=== PATIENT | male | born 1950 | race African-American/Black ===

== ENCOUNTER 2020-09-06 18:55 | Emergency (ER) | payer MEDICARE, MEDICAID ==
[~2020-09-06] VITALS: Ht 157.5 cm; Wt 63.5 kg
[2020-09-06 19:05] VITALS: BP 153/101
--- NOTE | 2020-09-06 19:17 | Emergency Room Report ---
History of Present Illness General Chief Complaint: Dizziness Source: Patient, Medical Record Present Illness HPI Patient is a 70-year-old male brought in by EMS after recurrent falls at facility. Patient had prior history of reported polio. States he had previously been unable to move his left lower extremity. Reports having increased neck pain after falling and hitting his head. Denies any extremity pain currently. Denies any fever. Had not been having any cough. Allergies: Coded Allergies: No Known Allergies (Unverified , 09/06/20) COVID-19 Screening Contact w/high risk pt: No Experienced COVID-19 symptoms?: No COVID-19 Testing performed SECOND MATE: No Patient History Past Medical History: see triage record Reviewed Nursing Documentation: PMH: Agreed; PSxH: Agreed Nursing Documentation-PMH Past Medical History: No History, Except For Hx Hypertension: Yes Review of Systems All Other Systems: limited - Review of systems: Review systems is limited by patient's being a poor historian Physical Exam Vital Signs Date Time Temp Pulse Resp B/P (MAP) Pulse Ox O2 Delivery O2 Flow Rate FiO2 09/06/20 18:45 96.3 80 16 153/101 (118) 100 Room Air General Appearance: alert, GCS 15, non-toxic, Chronically Ill Neck: full range of motion, tender - Posterior spinous muscles Respiratory: chest non-tender, lungs clear, normal breath sounds Cardiovascular #1: normal inspection Gastrointestinal: normal inspection, soft Musculoskeletal: other - Left lower extremity externally rotated, patient states this is due to polio Neurologic: oriented x3, motor weakness - Left lower extremity Psychiatric: normal inspection Medical Decision Making Diagnostic Impression: Primary Impression: Dehydration Additional Impressions: Acute renal insufficiency Weakness ER Course Patient presented after a fall. Differential diagnosis include was not limited to urinary tract infection, neck fracture, head injury, among others. Because of complexity of patient's case laboratory tests and imaging studies were ordered.Patient had elevated BUN/creatinine as well as increased generalized weakness. Patient's denies any recent vomiting. Had 2 falls at his facility today. CT imaging showed no evidence of acute intracranial process. Patient endorsed to Dr. xie pending imaging. Labs Test 09/06/20 19:30 White Blood Count 6.6 K/UL (4.8-10.8) Red Blood Count 4.79 M/UL (4.70-6.10) Hemoglobin 10.8 G/DL (14.2-18.0) Hematocrit 34.9 % (42.0-52.0) Mean Corpuscular Volume 73 FL (80-99) Mean Corpuscular Hemoglobin 22.5 PG (27.0-31.0) Mean Corpuscular Hemoglobin Concent 30.9 G/DL (32.0-36.0) Red Cell Distribution Width 13.9 % (11.6-14.8) Platelet Count 199 K/UL (150-450) Mean Platelet Volume 9.0 FL (6.5-10.1) Neutrophils (%) (Auto) 46.1 % (45.0-75.0) Lymphocytes (%) (Auto) 32.1 % (20.0-45.0) Monocytes (%) (Auto) 12.2 % (1.0-10.0) Eosinophils (%) (Auto) 8.5 % (0.0-3.0) Basophils (%) (Auto) 1.1 % (0.0-2.0) Prothrombin Time 11.2 SEC (9.30-11.50) Prothromb Time International Ratio 1.0 (0.9-1.1) Activated Partial Thromboplast Time 26 SEC (23-33) Urine Color Pale yellow Urine Appearance Clear Urine pH 6.5 (4.5-8.0) Urine Specific [place] 1.010 (1.005-1.035) Urine Protein 2+ (NEGATIVE) Urine Glucose (UA) Negative (NEGATIVE) Urine Ketones Negative (NEGATIVE) Urine Blood Negative (NEGATIVE) Urine Nitrite Negative (NEGATIVE) Urine Bilirubin Negative (NEGATIVE) Urine Urobilinogen Normal MG/DL (0.0-1.0) Urine Leukocyte Esterase Negative (NEGATIVE) Urine RBC 0-2 /HPF (0 - 0) Urine WBC 0 /HPF (0 - 0) Urine Squamous Epithelial Cells None /LPF (NONE/OCC) Urine Bacteria Occasional /HPF (NONE) Sodium Level 143 MMOL/L (136-145) Potassium Level 3.7 MMOL/L (3.5-5.1) Chloride Level 109 MMOL/L (98-107) Carbon Dioxide Level 31 MMOL/L (21-32) Anion Gap 3 mmol/L (5-15) Blood Urea Nitrogen 38 mg/dL (7-18) Creatinine 2.2 MG/DL (0.55-1.30) Estimat Glomerular Filtration Rate 35.9 mL/min (>60) Glucose Level 110 MG/DL (74-106) Calcium Level 10.2 MG/DL (8.5-10.1) Total Bilirubin 0.5 MG/DL (0.2-1.0) Aspartate Amino Transf (AST/SGOT) 12 U/L (15-37) Alanine Aminotransferase (ALT/SGPT) 17 U/L (12-78) Alkaline Phosphatase 78 U/L (46-116) Total Protein 7.9 G/DL (6.4-8.2) Albumin 3.7 G/DL (3.4-5.0) Globulin 4.2 g/dL Albumin/Globulin Ratio 0.9 (1.0-2.7) Last Vital Signs Date Time Temp Pulse Resp B/P (MAP) Pulse Ox O2 Delivery O2 Flow Rate FiO2 09/06/20 19:05 80 16 Room Air 09/06/20 19:05 96.3 153/101 100 Status: unchanged Disposition: ADMITTED INPATIENT Condition: Stable Scripts Aspirin Ec* (ASPIRIN EC*) 81 Mg Tablet.dr 81 MG ORAL DAILY for 30 Days, #30 TAB Prov: Je Washington MD 09/09/20 Cholecalciferol (Vitamin D3) (Vitamin D3*) 25 Mcg Capsule 2000 UNITS PO DAILY for Supplement for 30 Days, #30 CAP Prov: Je Washington MD 09/09/20 Losartan Potassium* (LOSARTAN POTASSIUM*) 50 Mg Tablet 100 MG ORAL DAILY for Hypertension for 30 Days, #30 TAB Prov: Je Washington MD 09/09/20 Hydralazine Hcl* (HYDRALAZINE HCL*) 25 Mg Tablet 25 MG ORAL EVERY 8 HOURS for HTN, #90 TAB 0 Refills Prov: Je Washington MD 09/09/20 Finasteride* (PROSCAR*) 5 Mg Tablet 5 MG ORAL DAILY for PROS for 30 Days, #30 TAB 0 Refills Prov: Je Washington MD 09/09/20 Doxazosin Mesylate* (DOXAZOSIN MESYLATE*) 1 Mg Tablet 1 MG ORAL DAILY for HTN for 30 Days, #30 TAB Prov: Je Washington MD 09/09/20 Atorvastatin Calcium* (ATORVASTATIN CALCIUM*) 20 Mg Tablet 10 MG ORAL BEDTIME for Dyslipidemia for 30 Days, #30 TAB Prov: Je Washington MD 09/09/20 Amlodipine Besylate* (AMLODIPINE BESYLATE*) 10 Mg Tablet 10 MG ORAL DAILY for Hypertension for 30 Days, #30 TAB Prov: Je Washington MD 09/09/20 Burton Rausch MD Sep 06, 2020 19:17
[2020-09-06 19:56] LABS: BASOPHILS % (AUTO) 1.1 % (0.0-2.0); EOSINOPHILS % (AUTO) 8.5 % (0.0-3.0); HEMATOCRIT 34.9 % (42.0-52.0); HEMOGLOBIN 10.8 G/DL (14.2-18.0); LYMPHOCYTES % (AUTO) 32.1 % (20.0-45.0); MEAN CORPUSCULAR VOLUME 73 FL (80-99); MONOCYTES % (AUTO) 12.2 % (1.0-10.0); NEUTROPHILS % (AUTO) 46.1 % (45.0-75.0); PLATELET COUNT 199 K/UL (150-450); RED BLOOD COUNT 4.79 M/UL (4.70-6.10); RED CELL DISTRIBUTION WIDTH 13.9 % (11.6-14.8); WHITE BLOOD COUNT 6.6 K/UL (4.8-10.8)
[2020-09-06 20:09] LABS: CALCIUM 10.2 MG/DL (8.5-10.1); CREATININE 2.2 MG/DL (0.55-1.30); POTASSIUM 3.7 MMOL/L (3.5-5.1)
--- NOTE | 2020-09-06 20:09 | Diagnostic Imaging Report ---
EXAM: CT Head Without Intravenous Contrast CLINICAL HISTORY: DIZZY TECHNIQUE: Axial computed tomography images of the head/brain without intravenous contrast. CTDI is 53.4 mGy and DLP is 992.1 mGy-cm. One or more of the following dose reduction techniques were used: automated exposure control, adjustment of the mA and/or kV according to patient size, use of iterative reconstruction technique. COMPARISON: No relevant prior studies available. FINDINGS: Brain: Unremarkable. No hemorrhage. No significant white matter disease. No edema. Cerebrovascular atherosclerosis. Ventricles: Unremarkable. No ventriculomegaly. Bones/joints: Unremarkable. No acute fracture. Soft tissues: Unremarkable. Sinuses: Unremarkable as visualized. No acute sinusitis. Mastoid air cells: Right mastoid air cell fluid attenuation 1.5 cm structure appears potentially contiguous with the intracranial space inadequately evaluated on this study due to plane of imaging, lack of IV contrast, and slice thickness. IMPRESSION: 1. No acute intracranial abnormality. 2. Recommend dedicated right temporal bone contrast enhanced CT to further evaluate fluid attenuation structure and possible vascular anatomic anomaly involving right mastoid air cells and temporal bone respectively. 3. Otherwise unremarkable study.
[2020-09-06 20:13] LABS: ALBUMIN 3.7 G/DL (3.4-5.0); ALBUMIN/GLOBULIN RATIO 0.9 (1.0-2.7); BILIRUBIN,TOTAL 0.5 MG/DL (0.2-1.0)
[2020-09-06 21:13] LABS: APPEARANCE,URINE CLEAR; BILIRUBIN, URINE NEGATIVE (NEGATIVE); COLOR,URINE PALE YELLOW; GLUCOSE, URINE (UA) NEGATIVE (NEGATIVE); KETONES,URINE NEGATIVE (NEGATIVE); LEUKOCYTE ESTERASE ,URINE NEGATIVE (NEGATIVE); NITRITE,URINE NEGATIVE (NEGATIVE); PH,URINE 6.5 (4.5-8.0); PROTEIN,URINE 2+ (NEGATIVE); UROBILINOGEN,URINE NORMAL MG/DL (0.0-1.0)
--- NOTE | 2020-09-06 21:28 | Diagnostic Imaging Report ---
EXAM: CT Cervical Spine Without Intravenous Contrast CLINICAL HISTORY: PAIN TECHNIQUE: Axial computed tomography images of the cervical spine without intravenous contrast. CTDI is 20.2 mGy and DLP is 553.6 mGy-cm. One or more of the following dose reduction techniques were used: automated exposure control, adjustment of the mA and/or kV according to patient size, use of iterative reconstruction technique. Coronal and sagittal reformatted images were created and reviewed. Axial reformatted images were created and reviewed. COMPARISON: No relevant prior studies available. FINDINGS: Vertebrae: Unremarkable. No acute fracture. Discs/spinal canal/neural foramina: Degenerative spine findings. No spinal canal stenosis. Soft tissues: Unremarkable. Thyroid: Recommend outpatient thyroid ultrasound to further evaluate massive left thyromegaly and substernal goiter with lobe measuring 6.2 x 3.9 x >10 cm. IMPRESSION: 1. No acute traumatic injury. 2. Recommend outpatient thyroid ultrasound to further evaluate massive left thyromegaly and substernal goiter with lobe measuring 6.2 x 3.9 x >10 cm.
[2020-09-06 22:10] VITALS: BP 136/78
[2020-09-07] VITALS (8 sets, daily range): BP systolic 128–154; BP diastolic 68–84
[2020-09-07] MEDS: HydrALAZINE 10mg Tab ORAL SCH ×3 (08:59→18:46)
[2020-09-07] MEDS: Docusate 100mg cap ORAL SCH ×2 (08:59→22:40)
[2020-09-07] MEDS: Heparin 5000 units/ml inj SUBQ SCH ×2 (09:00→22:40)
--- NOTE | 2020-09-07 09:30 | History and Physical Report ---
DATE OF ADMISSION: 09/06/2020 REFERRING PHYSICIAN: None. REASON FOR ADMISSION: Dizziness and falls. HISTORY OF PRESENT ILLNESS: This is a 70-year-old male who is a very poor historian. He lives at the facility. He has had polio and has a history of deformity and weakness of his left lower extremity. Patient reports that he has recently had multiple falls and that he is dizzy. He is unable to provide any further history. No other details are available. MEDICATIONS: Patient's list of home medications include amlodipine, hydrochlorothiazide, doxazosin. ALLERGIES: None reported. PAST MEDICAL HISTORY: Psych disorder, hypertension, BPH, schizophrenia, mild developmental delay. REVIEW OF SYSTEMS: Denies any headaches, hematemesis, melena, hematochezia, night sweats, or weight loss. PHYSICAL EXAMINATION: GENERAL: Reveals a 70-year-old male. HEENT: Unremarkable. LUNGS: Shows clear breath sounds bilaterally. ABDOMEN: Soft. EXTREMITIES: No edema. 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 VITAL SIGNS: Blood pressure is 150/100, heart rate 104, respirations 18, O2 saturation 98% on room air. Review of outside records, I noted the patient has a listed guardian as Zain Rosalese at [phone] and [phone] and Sravanthi Green who is a customer service associate at [phone]. Patient's listed diagnoses include polio, schizophrenia, hypertension, and mild mental retardation. LABORATORY DATA: Patient underwent laboratory testing, which shows white count of 6.6, hemoglobin 10.8, chloride 109, creatinine 2.2, glucose 110, calcium 10. Coags are negative. Urinalysis negative. IMAGING STUDIES: Patient underwent a cervical spine and head CT, which showed abnormalities consistent only with left thyromegaly and subsequent goiter. No other pathology was noted. His COVID-19 testing was negative. IMPRESSION: 1. Thyromegaly. 2. Hypertension. 3. Multiple falls. 4. Dizziness. DISCUSSION: We will admit to the hospital. Obtain MRI of brain. We will obtain carotid duplex. We will obtain ultrasound of the thyroid. We will obtain duplex of lower extremity, 2D echo. Consult Neurology. Continue medications. Blood pressure control. DVT prophylaxis. Cardiac diet. We will follow. Je Washington M.D. DR: RADHA JOB#: [id number] CC:
[2020-09-07] MEDS ORDERED: DOXAZOSIN MESYLA1 MG ORAL (09:42)
[2020-09-07] MEDS ORDERED: ATORVASTATIN CA20 MG ORAL (09:42)
[2020-09-07] MEDS ORDERED: LOSARTAN POTASS50 MG ORAL (09:42)
[2020-09-07] MEDS ORDERED: HYDROCHLOROTH12.5 MG ORAL (09:42)
[2020-09-07] MEDS ORDERED: HYDRALAZINE HCL25 M1 ORAL (09:42)
[2020-09-07] MEDS ORDERED: PROSCAR5 MG ORAL (09:42)
[2020-09-07] MEDS ORDERED: AMLODIPINE BESY10 MG ORAL (09:42)
[2020-09-07] MEDS ORDERED: VITAMIN D325 MC1 PO (09:42)
[2020-09-07] MEDS ORDERED: Morphine Sulfate 2mg/ml Inj(IV/IM USE ONLY) IVP PRN (13:45)
[2020-09-08] VITALS: BP 150/80
[2020-09-08 04:00] VITALS: BP 150/84
[2020-09-08 08:00] VITALS: BP 143/78
[2020-09-08 08:30] LABS: BASOPHILS % (AUTO) 1.5 % (0.0-2.0); EOSINOPHILS % (AUTO) 10.2 % (0.0-3.0); HEMATOCRIT 30.8 % (42.0-52.0); HEMOGLOBIN 9.8 G/DL (14.2-18.0); LYMPHOCYTES % (AUTO) 30.1 % (20.0-45.0); MEAN CORPUSCULAR VOLUME 71 FL (80-99); MONOCYTES % (AUTO) 10.1 % (1.0-10.0); NEUTROPHILS % (AUTO) 48.1 % (45.0-75.0); PLATELET COUNT 180 K/UL (150-450); RED BLOOD COUNT 4.36 M/UL (4.70-6.10); RED CELL DISTRIBUTION WIDTH 13.9 % (11.6-14.8); WHITE BLOOD COUNT 5.6 K/UL (4.8-10.8)
[2020-09-08] MEDS: Heparin 5000 units/ml inj SUBQ SCH ×2 (09:00→21:43)
[2020-09-08] MEDS: HydrALAZINE 10mg Tab ORAL SCH ×3 (09:00→18:08)
[2020-09-08] MEDS: Docusate 100mg cap ORAL SCH ×2 (09:00→21:42)
[2020-09-08 09:05] LABS: ALANINE AMINOTRANSFERASE 12 U/L (12-78); ALBUMIN 3.1 G/DL (3.4-5.0); ALBUMIN/GLOBULIN RATIO 0.8 (1.0-2.7); ALKALINE PHOSPHATASE 53 U/L (46-116); ANION GAP 6 mmol/L (5-15); ASPARTATE AMINO TRANSFERASE 12 U/L (15-37); BILIRUBIN,TOTAL 0.6 MG/DL (0.2-1.0); BLOOD UREA NITROGEN 31 mg/dL (7-18); CALCIUM 9.8 MG/DL (8.5-10.1); CARBON DIOXIDE 28 MMOL/L (21-32); CHLORIDE 108 MMOL/L (98-107); CHOLESTEROL 133 MG/DL (< 200); CREATININE 1.8 MG/DL (0.55-1.30); HDL CHOLESTEROL 59 MG/DL (40-60); POTASSIUM 3.8 MMOL/L (3.5-5.1); SODIUM 142 MMOL/L (136-145); TRIGLYCERIDES 50 MG/DL (30-150)
[2020-09-08 12:00] VITALS: BP 137/69
--- NOTE | 2020-09-08 12:30 | Pulmonology Progress Note ---
Subjective ROS Limited/Unobtainable: No Interval Events: none major Constitutional: Reports: no symptoms HEENT: Repors: no symptoms Respiratory: Reports: no symptoms Cardiovascular: Reports: no symptoms Gastrointestinal/Abdominal: Reports: no symptoms Allergies: Coded Allergies: No Known Allergies (Unverified , 09/06/20) Objective Last 24 Hour Vital Signs Date Time Temp Pulse Resp B/P (MAP) Pulse Ox O2 Delivery O2 Flow Rate FiO2 09/08/20 09:00 143/78 09/08/20 09:00 60 143/78 09/08/20 09:00 Room Air 09/08/20 08:00 63 09/08/20 08:00 97.8 60 16 143/78 (99) 99 09/08/20 04:00 53 09/08/20 04:00 98.1 60 16 150/84 (106) 100 09/08/20 00:02 60 09/08/20 00:00 54 09/08/20 00:00 97.9 65 16 150/80 (103) 99 09/07/20 21:00 Room Air 09/07/20 20:00 97.6 57 16 154/82 (106) 100 09/07/20 18:46 131/73 09/07/20 16:00 97.9 61 16 131/73 (92) 100 09/07/20 16:00 60 09/07/20 13:07 154/84 Intake and Output 09/07/20 09/08/20 18:59 06:59 Intake Total 1050 ml 360 ml Output Total 900 ml 900 ml Balance 150 ml -540 ml Intake Oral 800 ml 360 ml IV Total 250 ml Output Urine Total 900 ml 900 ml # Voids 3 3 Objective 09/08/2020 hard of hearing; NAD; saturating well on RA General Appearance: WD/WN, no acute distress HEENT: normocephalic, atraumatic Respiratory: lungs clear Cardiovascular: normal rate, regular rhythm Abdomen: soft, non tender Musculoskeletal: other - left leg slightly rotated to the left with clubfoot deformity. Microbiology Date/Time Source Procedure Growth Status 09/07/20 09:30 Rectum Received 09/07/20 01:30 Nasopharynx SARS-CoV-2 RdRp Gene Assay - Final Complete Laboratory Tests 09/08/20 06:52: White Blood Count 5.6, Red Blood Count 4.36L, Hemoglobin 9.8L, Hematocrit 30.8L, Mean Corpuscular Volume 71L, Mean Corpuscular Hemoglobin 22.5L, Mean Corpuscular Hemoglobin Concent 31.9L, Red Cell Distribution Width 13.9, Platelet Count 180, Mean Platelet Volume 9.7, Neutrophils (%) (Auto) 48.1, Lymphocytes (%) (Auto) 30.1, Monocytes (%) (Auto) 10.1H, Eosinophils (%) (Auto) 10.2H, Basophils (%) (Auto) 1.5, Sodium Level 142, Potassium Level 3.8, Chloride Level 108H, Carbon Dioxide Level 28, Anion Gap 6, Blood Urea Nitrogen 31H, Creatinine 1.8H, Estimat Glomerular Filtration Rate 45.2, Glucose Level 81, Hemoglobin A1c 4.5, Calcium Level 9.8, Total Bilirubin 0.6, Aspartate Amino Transf (AST/SGOT) 12L, Alanine Aminotransferase (ALT/SGPT) 12, Alkaline Phosphatase 53, Total Protein 6.8, Albumin 3.1L, Globulin 3.7, Albumin/Globulin Ratio 0.8L, Triglycerides Level 50, Cholesterol Level 133, LDL Cholesterol 49, HDL Cholesterol 59, Cholesterol/HDL Ratio 2.3L, Prostate Specific Antigen 0.16, Thyroid Stimulating Hormone (TSH) 1.057 Current Medications Medications (Trade) Dose Ordered Sig/Sergio Route PRN Reason Start Time Stop Time Status Last Admin Dose Admin Acetaminophen (Tylenol) 650 mg Q4H PRN ORAL Mild Pain (Pain Scale 1-3) 09/07/20 08:45 10/07/20 08:44 Acetaminophen (Tylenol) 650 mg Q6H PRN ORAL Pain Scale (4-5) 09/07/20 13:45 10/07/20 13:44 Acetaminophen (Tylenol) 650 mg Q6H PRN ORAL Temp >100.4 09/07/20 14:15 10/07/20 14:14 Amlodipine Besylate (Norvasc) 10 mg DAILY ORAL 09/07/20 09:00 10/07/20 08:59 09/08/20 09:00 Dextrose (Dextrose 50%) 25 ml Q30M PRN IV Hypoglycemia 09/07/20 08:45 12/06/20 08:44 Dextrose (Dextrose 50%) 50 ml Q30M PRN IV Hypoglycemia 09/07/20 08:45 12/06/20 08:44 Docusate Sodium (Colace) 100 mg EVERY 12 HOURS ORAL 09/07/20 09:00 10/07/20 08:59 09/08/20 09:00 Heparin Sodium (Porcine) (Heparin 5000 units/ml) 5,000 units EVERY 12 HOURS SUBQ 09/07/20 09:00 10/22/20 08:59 09/08/20 09:00 Hydralazine HCl (Apresoline) 10 mg THREE TIMES A DAY ORAL 09/07/20 09:00 12/06/20 08:59 09/08/20 09:00 Morphine Sulfate (Morphine Sulfate) 1 mg Q4H PRN IVP For pain 6-10 09/07/20 13:45 09/14/20 13:44 Ondansetron HCl (Zofran) 4 mg Q6H PRN IVP Nausea & Vomiting 09/07/20 14:08 10/07/20 14:07 Sodium Chloride 1,000 ml @ 50 mls/hr Q20H IVLG 09/07/20 09:45 10/07/20 09:44 09/07/20 13:11 Assessment/Plan Assessment/Plan Assessment: 1. Thyromegaly. 2. Hypertension. - on antihypertensives - Cardiac diet 3. Multiple falls. 4. Dizziness. MRI brain result pending US of thyroid result pending Carotid duplex result pending Duplex of LE pending 2D echo pending WIll consult neurology Will request PT eval Cont meds DVT ppx We will follow carefully The care for this patient was discussed with my supervising physician Time spent for this case was approximately 31 minutes The patient was seen and examined at bedside and all new and available data was reviewed in the patients chart. I agree with the above findings, impression, and plan. (Patient was seen earlier today. Signature timestamp does not reflect patient encounter time) Arnoldo Vernon MD Sep 08, 2020 12:30 Je Washington MD Sep 08, 2020 16:37
--- NOTE | 2020-09-08 13:22 | Diagnostic Imaging Report ---
Indication: Left lower extremity paralysis, neck pain after falling and hitting head, recurrent falls, altered level of consciousness Technique: Grayscale and duplex images of the bilateral extracranial Comparison: none Findings: Bilaterally, grayscale and duplex images demonstrate atherosclerotic plaquing resulting in less than 50% diameter narrowing. Normal Doppler flow velocities and waveforms. Patent bilateral vertebral arteries, antegrade flow Incidentally noted is marked enlargement and heterogeneity of the left thyroid lobe. Impression: Less than 50% diameter stenosis bilaterally Enlarged left thyroid lobe, also described on recent CT scan. Please refer to report of subsequent thyroid sonogram
--- NOTE | 2020-09-08 14:34 | Diagnostic Imaging Report ---
Indication: Weakness of the left lower extremity, altered level of consciousness, history of multiple falls, dizziness Technique: sagittal T1 fast spin echo, axial T1 FLAIR, axial T2 FLAIR, axial T2 FS PROPELLER, axial T2* GRE, axial diffusion weighted images. ADC and exponential ADC maps generated Comparison: Head CT dated 09/06/2020. No comparison MRIs Findings: No abnormal areas of restricted diffusion to suggest acute infarction. No acute hemorrhage or edema. No mass effect nor midline shift. There is mild age-related enlargement of the ventricles and extra axial CSF spaces. Old white matter infarct is seen in the right angela radiata.. Visualized orbits and sinuses are unremarkable. There is a slightly expansile lesion in the right mastoid, corresponding to the abnormality described on recent PET/CT, measuring approximately 25 x 13 mm. This demonstrates fairly low signal on T1-weighted images, intermediate signal on T2 FLAIR, high signal on T2 and T2*images, and intense signal on the diffusion-weighted images with somewhat low signal on the ADC map. Somewhat high signal with absence of flow void is seen within the right internal jugular vein on the T2-weighted sequences and intermediate signal is seen in the right transverse sinus on all sequences. The superior ophthalmic veins are dilated, each measuring approximately 5 mm in diameter. This appearance is symmetric Impression: Negative for acute intracranial bleed, mass effect, or infarct Right mastoid abnormality, as described above and better depicted previously on recent CT scan. 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 Other differential considerations include mucocele, less likely neoplasm. Absence of signal void within the right internal jugular vein and transverse sinus. Although quite possibly an artifact of sluggish, this finding is evident on all sequences and raises possibility of thrombosis of these structures. Consider duplex scanning of the right internal jugular vein for further evaluation Symmetrically mildly large appear ophthalmic veins. 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
--- NOTE | 2020-09-08 15:41 | Diagnostic Imaging Report ---
Indication: Palpable left neck mass, abnormal prior imaging studies calcium Technique: Grayscale and duplex images of the thyroid Comparison: Reference made to CT scan of the cervical spine dated 09/06/2020 Findings: Right thyroid lobe measures 4.3 cm length x 1.5 cm AP. Left thyroid lobe isn't possible to accurately measure, as there is a significant substernal component as demonstrated by prior imaging. It measures at least 7 cm in length by 3.8 cm AP by 5.3 cm transverse. Multiple nodules are seen within the right thyroid lobe, the largest measuring 1.5 cm in diameter. A nodule is seen in the thyroid isthmus measuring 2.1 x 1.2 cm. The left thyroid lobe is diffusely abnormal and heterogeneous, completely replaced by conglomerate ill-defined nodules and cystic spaces without definite discrete individual mass. Impression: Massively enlarged left thyroid lobe and isthmus, consistent with asymmetric multinodular goiter. The right thyroid lobe is not enlarged, contains some normal parenchyma, but also demonstrates multiple nodules
[2020-09-08 16:00] VITALS: BP 133/87
--- NOTE | 2020-09-08 19:52 | Neurology Progress Note ---
Interim History Interim History ROS Limited/Unobtainable: No Interim History Pt lives in longterm, e has had polio and has a history of deformity and weakness of his left lower extremity. Patient reports that he has recently had multiple falls and that he is dizzy. He is unable to provide any further history. No other details are available. MRI brain noted, no acute strokes carotid us with bilateral Current Medications Medications (Trade) Dose Ordered Sig/Sergio Route PRN Reason Start Time Stop Time Status Last Admin Dose Admin Acetaminophen (Tylenol) 650 mg Q4H PRN ORAL Mild Pain (Pain Scale 1-3) 09/07/20 08:45 10/07/20 08:44 Acetaminophen (Tylenol) 650 mg Q6H PRN ORAL Pain Scale (4-5) 09/07/20 13:45 10/07/20 13:44 Acetaminophen (Tylenol) 650 mg Q6H PRN ORAL Temp >100.4 09/07/20 14:15 10/07/20 14:14 Amlodipine Besylate (Norvasc) 10 mg DAILY ORAL 09/07/20 09:00 10/07/20 08:59 09/08/20 09:00 Dextrose (Dextrose 50%) 25 ml Q30M PRN IV Hypoglycemia 09/07/20 08:45 12/06/20 08:44 Dextrose (Dextrose 50%) 50 ml Q30M PRN IV Hypoglycemia 09/07/20 08:45 12/06/20 08:44 Docusate Sodium (Colace) 100 mg EVERY 12 HOURS ORAL 09/07/20 09:00 10/07/20 08:59 09/08/20 09:00 Heparin Sodium (Porcine) (Heparin 5000 units/ml) 5,000 units EVERY 12 HOURS SUBQ 09/07/20 09:00 10/22/20 08:59 09/08/20 09:00 Hydralazine HCl (Apresoline) 10 mg THREE TIMES A DAY ORAL 09/07/20 09:00 12/06/20 08:59 09/08/20 18:08 Morphine Sulfate (Morphine Sulfate) 1 mg Q4H PRN IVP For pain 6-10 09/07/20 13:45 09/14/20 13:44 Ondansetron HCl (Zofran) 4 mg Q6H PRN IVP Nausea & Vomiting 09/07/20 14:08 10/07/20 14:07 Sodium Chloride 1,000 ml @ 50 mls/hr Q20H IVLG 09/07/20 09:45 10/07/20 09:44 09/07/20 13:11 stenosis, both less than 50% Objective Physical Exam Last Vital Signs Date Time Temp Pulse Resp B/P (MAP) Pulse Ox O2 Delivery O2 Flow Rate FiO2 09/08/20 18:08 133/87 09/08/20 16:00 97.6 87 16 96 09/08/20 09:00 Room Air Laboratory Tests Test 09/08/20 06:52 White Blood Count 5.6 K/UL (4.8-10.8) Red Blood Count 4.36 M/UL (4.70-6.10) L Hemoglobin 9.8 G/DL (14.2-18.0) L Hematocrit 30.8 % (42.0-52.0) L Mean Corpuscular Volume 71 FL (80-99) L Mean Corpuscular Hemoglobin 22.5 PG (27.0-31.0) L Mean Corpuscular Hemoglobin Concent 31.9 G/DL (32.0-36.0) L Red Cell Distribution Width 13.9 % (11.6-14.8) Platelet Count 180 K/UL (150-450) Mean Platelet Volume 9.7 FL (6.5-10.1) Neutrophils (%) (Auto) 48.1 % (45.0-75.0) Lymphocytes (%) (Auto) 30.1 % (20.0-45.0) Monocytes (%) (Auto) 10.1 % (1.0-10.0) H Eosinophils (%) (Auto) 10.2 % (0.0-3.0) H Basophils (%) (Auto) 1.5 % (0.0-2.0) Sodium Level 142 MMOL/L (136-145) Potassium Level 3.8 MMOL/L (3.5-5.1) Chloride Level 108 MMOL/L (98-107) H Carbon Dioxide Level 28 MMOL/L (21-32) Anion Gap 6 mmol/L (5-15) Blood Urea Nitrogen 31 mg/dL (7-18) H Creatinine 1.8 MG/DL (0.55-1.30) H Estimat Glomerular Filtration Rate 45.2 mL/min (>60) Glucose Level 81 MG/DL (74-106) Hemoglobin A1c 4.5 % (4.3-6.0) Calcium Level 9.8 MG/DL (8.5-10.1) Total Bilirubin 0.6 MG/DL (0.2-1.0) Aspartate Amino Transf (AST/SGOT) 12 U/L (15-37) L Alanine Aminotransferase (ALT/SGPT) 12 U/L (12-78) Alkaline Phosphatase 53 U/L (46-116) Total Protein 6.8 G/DL (6.4-8.2) Albumin 3.1 G/DL (3.4-5.0) L Globulin 3.7 g/dL Albumin/Globulin Ratio 0.8 (1.0-2.7) L Triglycerides Level 50 MG/DL (30-150) Cholesterol Level 133 MG/DL (< 200) LDL Cholesterol 49 mg/dL (<100) HDL Cholesterol 59 MG/DL (40-60) Cholesterol/HDL Ratio 2.3 (3.3-4.4) L Prostate Specific Antigen 0.16 ng/mL (0.13-4.0) Thyroid Stimulating Hormone (TSH) 1.057 uiU/mL (0.358-3.740) Neurologic Exam Mental Status: awake, alert Speech: normal speech Language: normal language Objective ao x 3 non focal weak in legs Impression/Recommendations Problems: (1) Acute renal insufficiency (2) Dehydration (3) Weakness (4) Bradycardia Diagnostic Impression sp fall, encephalopathy no new strokes mild athero start asa 81 mg daily secondary stroke ppx delirium precautions cont pt ot Kobe Rowan MD Sep 08, 2020 19:52
[2020-09-08 20:00] VITALS: BP 157/87
[2020-09-09] VITALS: BP 150/86
[2020-09-09 04:00] VITALS: BP 156/83
[2020-09-09 08:00] VITALS: BP 149/83
[2020-09-09] MEDS ORDERED: Aspirin EC 81mg tab ORAL SCH (09:00)
[2020-09-09] MEDS: HydrALAZINE 10mg Tab ORAL SCH ×2 (09:40→13:25)
[2020-09-09] MEDS: Docusate 100mg cap ORAL SCH (09:40)
[2020-09-09] MEDS: Heparin 5000 units/ml inj SUBQ SCH (09:41)
--- NOTE | 2020-09-09 10:06 | Neurology Progress Note ---
Interim History Interim History ROS Limited/Unobtainable: No Interim History started asa pending PT eval and ambulation Objective Physical Exam Last Vital Signs Date Time Temp Pulse Resp B/P (MAP) Pulse Ox O2 Delivery O2 Flow Rate FiO2 09/09/20 09:40 149/83 09/09/20 09:40 59 09/09/20 08:00 97.4 20 95 09/08/20 21:00 Room Air Neurologic Exam Mental Status: awake, alert Speech: normal speech Language: normal language Objective ao x 3 non focal weak in legs Impression/Recommendations Problems: (1) Acute renal insufficiency (2) Dehydration (3) Weakness (4) Bradycardia Diagnostic Impression sp fall, encephalopathy no new strokes mild athero asa 81 mg daily secondary stroke ppx delirium precautions cont pt ot Kobe Rowan MD Sep 09, 2020 10:06
--- NOTE | 2020-09-09 10:43 | Pulmonology Progress Note ---
Subjective ROS Limited/Unobtainable: No Interval Events: none major Constitutional: Reports: no symptoms HEENT: Repors: no symptoms Respiratory: Reports: no symptoms Cardiovascular: Reports: no symptoms Gastrointestinal/Abdominal: Reports: no symptoms Allergies: Coded Allergies: No Known Allergies (Unverified , 09/06/20) Objective Last 24 Hour Vital Signs Date Time Temp Pulse Resp B/P (MAP) Pulse Ox O2 Delivery O2 Flow Rate FiO2 09/09/20 09:40 149/83 09/09/20 09:40 59 149/83 09/09/20 08:00 97.4 59 20 149/83 (105) 95 09/09/20 04:00 63 09/09/20 04:00 99.8 55 22 156/83 (107) 99 09/09/20 00:00 70 09/09/20 00:00 97.1 63 20 150/86 (107) 99 09/08/20 21:00 Room Air 09/08/20 20:00 59 09/08/20 20:00 99.8 60 20 157/87 (110) 96 09/08/20 18:08 133/87 09/08/20 16:00 97.6 87 16 133/87 (102) 96 09/08/20 16:00 64 09/08/20 13:24 137/69 09/08/20 12:00 50 09/08/20 12:00 97.4 64 18 137/69 (91) 96 Intake and Output 09/08/20 09/09/20 19:00 07:00 Intake Total 800 ml 600 ml Output Total 800 ml 1300 ml Balance 0 ml -700 ml Intake Oral 800 ml 600 ml Output Urine Total 800 ml 1300 ml # Voids 2 4 Objective 09/09/2020 saturating well on RA; NAD 09/08/2020 hard of hearing; NAD; saturating well on RA General Appearance: WD/WN, no acute distress HEENT: normocephalic, atraumatic Respiratory: lungs clear Cardiovascular: normal rate, regular rhythm Abdomen: soft, non tender Musculoskeletal: other - weak legs; pt reports hx of polio Microbiology Date/Time Source Procedure Growth Status 09/07/20 09:30 Rectum VRE Culture - Final NO VANCOMYCIN RESISTANT ENTEROCOCCUS ... Complete 09/07/20 09:30 Rectum - Final NO CARBAPENEM-RESISTANT ENTEROBACTERI... Complete 09/07/20 09:30 Nasal Nares MRSA Culture - Final NO METHICILLIN RESISTANT STAPH AUREUS... Complete 09/07/20 01:30 Nasopharynx SARS-CoV-2 RdRp Gene Assay - Final Complete Current Medications Medications (Trade) Dose Ordered Sig/Sergio Route PRN Reason Start Time Stop Time Status Last Admin Dose Admin Acetaminophen (Tylenol) 650 mg Q4H PRN ORAL Mild Pain (Pain Scale 1-3) 09/07/20 08:45 10/07/20 08:44 Acetaminophen (Tylenol) 650 mg Q6H PRN ORAL Pain Scale (4-5) 09/07/20 13:45 10/07/20 13:44 Acetaminophen (Tylenol) 650 mg Q6H PRN ORAL Temp >100.4 09/07/20 14:15 10/07/20 14:14 Amlodipine Besylate (Norvasc) 10 mg DAILY ORAL 09/07/20 09:00 10/07/20 08:59 09/09/20 09:40 Aspirin (Ecotrin) 81 mg DAILY ORAL 09/09/20 09:00 10/24/20 08:59 09/09/20 09:40 Dextrose (Dextrose 50%) 25 ml Q30M PRN IV Hypoglycemia 09/07/20 08:45 12/06/20 08:44 Dextrose (Dextrose 50%) 50 ml Q30M PRN IV Hypoglycemia 09/07/20 08:45 12/06/20 08:44 Docusate Sodium (Colace) 100 mg EVERY 12 HOURS ORAL 09/07/20 09:00 10/07/20 08:59 09/09/20 09:40 Heparin Sodium (Porcine) (Heparin 5000 units/ml) 5,000 units EVERY 12 HOURS SUBQ 09/07/20 09:00 10/22/20 08:59 09/09/20 09:41 Hydralazine HCl (Apresoline) 10 mg THREE TIMES A DAY ORAL 09/07/20 09:00 12/06/20 08:59 09/09/20 09:40 Morphine Sulfate (Morphine Sulfate) 1 mg Q4H PRN IVP For pain 6-10 09/07/20 13:45 09/14/20 13:44 Ondansetron HCl (Zofran) 4 mg Q6H PRN IVP Nausea & Vomiting 09/07/20 14:08 10/07/20 14:07 Sodium Chloride 1,000 ml @ 50 mls/hr Q20H IVLG 09/07/20 09:45 10/07/20 09:44 09/09/20 01:21 Assessment/Plan Assessment/Plan Assessment: 1. Thyromegaly. 2. Hypertension. - on antihypertensives - Cardiac diet 3. Multiple falls. 4. Dizziness. MRI brain - no acute intracranial pathology US of thyroid - multiple nodules Carotid duplex - stenosed carotids; aspirin added per neuro pending PT eval Cont meds DVT ppx We will follow carefully The care for this patient was discussed with my supervising physician Time spent for this case was approximately 31 minutes Arnoldo Raines Sep 09, 2020 10:43
[2020-09-09 12:00] VITALS: BP 170/80
[2020-09-09] MEDS ORDERED: ASPIRIN EC81 MG ORAL (12:00)
[2020-09-09] MEDS ORDERED: PROSCAR5 MG ORAL (12:00)
[2020-09-09] MEDS ORDERED: ATORVASTATIN CA20 MG ORAL (12:00)
[2020-09-09] MEDS ORDERED: DOXAZOSIN MESYLA1 MG ORAL (12:00)
[2020-09-09] MEDS ORDERED: LOSARTAN POTASS50 MG ORAL (12:00)
[2020-09-09] MEDS ORDERED: HYDRALAZINE HCL25 M1 ORAL (12:00)
[2020-09-09] MEDS ORDERED: AMLODIPINE BESY10 MG ORAL (12:00)
[2020-09-09] MEDS ORDERED: VITAMIN D325 MC1 PO (12:00)
--- NOTE | 2020-09-09 12:54 | Discharge Instructions ---
Discharge Instructions Discharge Instructions Special Instructions discharge after PT eval For Congestive Heart Failure Reminder Report to your physician any weight gain of 5 pounds or more in one week. Arnoldo Raines Sep 09, 2020 12:54
[2020-09-09 16:00] VITALS: BP 155/71
--- NOTE | 2020-09-11 17:08 | Discharge Summary ---
Discharge Summary Discharge Summary _ Date of admission: 09/07/2020 Date of discharge: 09/09/[address] Washington Reason for hospitalization: A 70-year-old male with past medical history of polio, with associated deformity and weakness of his left lower extremity, presented for evaluation of recurrent falls at the assisted living facility. Patient reported that he had recently had multiple falls and that he felt dizzy. He was a poor historian and was unable to provide any further history. Patient tested negative for COVID-19 Patient was admitted for further work-up Consultants: Neurology Dr. Rowan Significant finding: Head CT showed no acute intracranial abnormality Cervical spine CT showed no acute traumatic injury Carotid duplex scan showed enlarged left thyroid lobe, and less than 50% diameter stenosis bilaterally Brain MRI was negative for acute intracranial bleed, mass-effect, or infarct Thyroid ultrasound revealed massively enlarged left thyroid lobe and isthmus consistent with asymmetric multinodular goiter. The right thyroid lobe is not enlarged but also demonstrates multiple nodules CBC showed hemoglobin 9.8, hematocrit 30.8 Chemistry showed chloride 109, BUN 38, creatinine 2.2 Hospital course/treatment rendered Patient was saturating well on room air. Antihypertensives provided Aspirin provided for carotid artery stenosis Condition of patient on discharge Patient was clinically stable for discharge on medical therapy back to assisted living Discharge instruction Patient was discharged back to assisted living Final diagnoses Acute renal insufficiency Dehydration Weakness Bradycardia Hypertension Thyromegaly I have been assigned to dictate discharge summary for this account. Arnoldo Raines Sep 11, 2020 17:08
== END 2020-09-09 16:49 ==
LOC: EDBD 18:55 → EMR 19:08 → 2E 09-07 01:58 → UNDOADMIN 09-07 01:58 → EDBEDREQ 09-07 09:15
DX: E86.0 Dehydration (principal); N17.9 Acute kidney failure, unspecified; E04.2 Nontoxic multinodular goiter; I10 Essential (primary) hypertension; R42 Dizziness and giddiness; R29.6 Repeated falls
CPT/HCPCS: 36415; 70450; 70551; 72125; 76536; 80053; 80061; 81003; 83036; 84153; 84443; 85025; 85610; 85730; 87081; 93005; 93306; 93880; 97110; 97116; 97162; 97530; J1644; J7040; U0002